=== PATIENT | female | born 1950 ===

== ENCOUNTER → 2017-01-21 | Day surgery (SDC) | payer OTHER ==
[~2017-01-21] VITALS: Ht 154.9 cm; Wt 65.8 kg
[~2017-01-21] MED LIST: 0.9% Sodium Chloride 1,000 ML IV PRN; BACL10TA PO; CALC600T12 PO; CHOL200025 PO; CRAN500T2 PO; GLAT40SY SQ; HYDR-4003 PO; MULT-1018 PO; OMEG500C PO; Sodium Chloride LOK Flush 10 mL Syringe IV PRN; VIT1TABL83 PO; fentaNYL-PF 50 mCg/mL 2 mL Inj IVPUSH PRN
[2017-01-21 10:03] VITALS: BP 149/92; PULSE 75; RESP 16; O2SAT 97
[2017-01-21 11:40] VITALS: BP 129/76; PULSE 85; RESP 14; O2SAT 99
[2017-01-21 11:50] VITALS: BP 133/75; PULSE 89; RESP 16; O2SAT 98
--- NOTE | 2017-01-21 19:58 | ENDO ---
[address] [address] ENDOSCOPY PROCEDURE PATIENT: EVELIN YOU : 1950 MR#: [id number] ADMIT: 01/21/2017 JOB ID: [id number] DATE: 01/21/2017 PROCEDURE PERFORMED: Colonoscopy. INDICATION: Patient with personal history of colon polyps. Patient's ASA classification is II. Mallampati score is II. MEDICATIONS: Versed at 4 mg, fentanyl 100 mcg. INSTRUMENT USED: PCF-H180AL PREPARATION QUALITY: Good. PROCEDURE DETAILS: After informed consent was obtained, the patient was brought into the GI suite, where he was placed on oxygen by nasal cannula and monitored with continuous pulse oximeter, telemetry, and blood pressure monitoring. A time-out was performed. Then, she was placed in a left lateral decubitus position and medications were administered for sedation. A digital rectal exam was performed which was unremarkable. The colonoscope was then inserted into the rectum and advanced under direct visualization to the cecum, which was identified by the presence of the ileocecal valve and appendiceal orifice. Once the cecum was reached, the colonoscope was withdrawn back into the rectum as mucosa and lumen were examined. In the rectum, retroflexion was unable to be performed secondary to a short rectum.Remaining air in rectum was suctioned and procedure was completed. FINDINGS: Normal exam from rectum to cecum. IMPRESSION: Normal colonoscopy. RECOMMENDATIONS: Repeat colonoscopy in five years, sooner if symptoms should dictate. COMPLICATIONS: None. ESTIMATED BLOOD LOSS: Less than 5 mL. MTDD
== END | disposition home or self-care (01) ==
LOC: END 00:30
PROVIDERS: ATTEND Internal Medicine Gastroenterology
DX: Z12.11 Encounter for screening for malignant neoplasm of colon (principal); Z86.010 Personal history of colon polyps; E11.9 Type 2 diabetes mellitus without complications; M85.89 Other specified disorders of bone density and structure, multiple sites; M17.12 Unilateral primary osteoarthritis, left knee; G35 Multiple sclerosis
CPT/HCPCS: 99153; G0105; G0500; J2250; J3010; J7030